=== PATIENT | female | born 1980 | race Two or more races ===

== ENCOUNTER 2016-10-07 | Emergency (ER) | payer OTHER ==
[~2016-10-07] MED LIST: CIPRO500 MG PO; CYCLOBENZAPRINE10 MG PO; ELAVIL25 MG PO; LEVOXYL25 MCG PO; NORCO 5/325 TAB1 TAB PO
[2016-10-07] MEDS ORDERED: PRILOSEC OTC20 M1 PO (21:30)
[2016-10-07] MEDS ORDERED: SUDAFED 12-HOU120 MG PO (22:12)
[2016-10-07] MEDS ORDERED: AMOXICILLIN875 M1 PO (22:12)
== END 2016-10-07 22:20 ==
DX: J32.9 Chronic sinusitis, unspecified (principal); H66.91 Otitis media, unspecified, right ear; E07.9 Disorder of thyroid, unspecified; Z98.890 Other specified postprocedural states

== ENCOUNTER 2017-02-10 06:38 | Day surgery (SDC) | payer OTHER ==
[~2017-02-10] VITALS: Ht 157.5 cm; Wt 64.8 kg
[~2017-02-10 06:38] MED LIST changes: +AMOXICILLIN875 M1 PO; +PRILOSEC OTC20 M1 PO; +SUDAFED 12-HOU120 MG PO
[2017-02-10 07:25] LABS: BASO % 1.2 % (0-2); BASO ABSOLUTE COUNT 0.1 tho/cmm (0.0-0.2); EOS % 6.2 % (0-7); EOSINOPHIL ABSOLUTE COUNT 0.4 tho/cmm (0.0-0.7); HCT-HEMATOCRIT 36.2 % (34.0-49.0); HGB-HEMOGLOBIN 11.3 gm/dl (12.0-15.5); LYMPH ABSOLUTE COUNT 1.7 tho/cmm (0.8-4.5); MCH (MEAN CORPUSCULAR HGB) 24.2 pg (28.0-32.0); MCHC MEAN CORPUSCULAR HGB CONC 31.2 % (32.0-36.0); MCV (MEAN CELL VOLUME) 77.7 fl (82.0-96.0); MEAN PLATELET VOLUME 11.2 cmc (9.4-12.4); MONO % 6.9 % (0-12); MONOCYTE ABSOLUTE COUNT 0.4 tho/cmm (0.0-1.2); NEUTROPHIL ABSOLUTE COUNT 3.2 tho/cmm (1.6-8.0); NEUTROPHIL-AUTOMATED 3.2 tho/cmm (1.6-8.0); NEUTROPHILS % 55.7 % (40-80); PLATELET COUNT 360 tho/cmm (150-450); RED BLOOD COUNT 4.66 mil/cmm (4.00-5.20); RED CELL DISTRIBUTION WIDTH 14.9 % (12.4-16.4); WHITE BLOOD COUNT 5.8 tho/cmm (4.0-10.0)
== END 2017-02-10 16:25 ==
LOC: SRG 06:38 → SHSB 06:38 → SRG 07:00 → ORW 08:46 → PACU 10:08 → SHSB 11:28 → SRG 16:25
PROVIDERS: Anesthesiology
PROC: 0FT44ZZ Resection of Gallbladder, Percutaneous Endoscopic Approach (ICD-10-PCS; principal; 2017-02-10)
DX: K81.1 Chronic cholecystitis (principal); J45.909 Unspecified asthma, uncomplicated; K21.9 Gastro-esophageal reflux disease without esophagitis; Z98.51 Tubal ligation status; Z79.899 Other long term (current) drug therapy; Z98.890 Other specified postprocedural states
CPT/HCPCS: J0690; J1170; J2175; J7030